=== PATIENT | male | born 1985 | race Asian ===

== ENCOUNTER 2018-02-24 14:34 | Emergency (ER) | payer OTHER ==
[~2018-02-24] VITALS: Ht 172.7 cm; Wt 66.2 kg
[2018-02-24 15:05] LABS: URINE BILIRUBIN NEGATIVE (Negative); URINE BLOOD 1+ (Negative); URINE CLARITY CLEAR; URINE COLOR YELLOW; URINE GLUCOSE-RANDOM* NEGATIVE (Negative); URINE KETONES NEGATIVE (Negative); URINE NITRITE-REFLEX NEGATIVE (Negative); URINE PROTEIN (DIPSTICK) NEGATIVE (Negative); URINE UROBILINOGEN 0.2 E.U./dl (0.2-1.0)
[2018-02-24 15:11] LABS: URINE LEUKOCYTES-REFLEX 2+ (Negative)
[2018-02-24 15:19] LABS: SQUAMOUS None Seen /LPF (0-3); URINE RBC 0-2 Rare /HPF (0-2)
[2018-02-24 15:20] LABS: BACTERIA-REFLEX None Seen /HPF (None Seen); CASTS None Seen /LPF (None Seen); CRYSTALS None Seen /LPF (None Seen)
[2018-02-24 15:48] LABS: ABSOLUTE NEUTROPHILS 4.8 thou/uL (1.4-8.2); BASOPHILS 0.6 % (0.0-2.0); EOSINOPHILS 1.1 % (0.0-3.0); HEMATOCRIT 45.3 % (42.0-52.0); HEMOGLOBIN 15.9 gm/dL (14.0-18.0); LYMPHOCYTES 25.8 % (24.0-44.0); MCV 94.3 fL (80.0-100.0); MONOCYTES 5.3 % (1.0-8.0); PLATELET COUNT 266 thou/uL (150-400); POLYS 67.2 % (36.0-66.0); RDW 12.2 % (10.5-14.5); WBC 7.2 thou/uL (4.0-11.0)
[2018-02-24 15:59] LABS: POTASSIUM 3.7 mmol/L (3.5-5.1)
[2018-02-24 16:05] LABS: ALBUMIN 4.1 g/dL (3.4-5.0); TOTAL BILIRUBIN 0.6 mg/dL (<0.1-1.0); TOTAL PROTEIN 7.8 g/dL (6.4-8.2)
[2018-02-24] MEDS ORDERED: BACTRIM DS TAB1 EACH PO (16:48)
[2018-02-24] MEDS ORDERED: NAPROSYN500 MG PO (16:48)
[2018-02-24 17:25] VITALS: BP 135/88
== END 2018-02-24 17:26 | disposition home or self-care (01) ==
LOC: ER 14:34
PROVIDERS: Emergency Medicine
DX: N39.0 Urinary tract infection, site not specified (principal)

== ENCOUNTER 2018-04-24 15:12 | Emergency (ER) | payer OTHER ==
[~2018-04-24] VITALS: Ht 170.2 cm; Wt 65.8 kg
[~2018-04-24 15:12] MED LIST: BACTRIM DS TAB1 EACH PO; NAPROSYN500 MG PO
[2018-04-24 15:16] VITALS: BP 150/76
[2018-04-24 15:30] LABS: URINE BILIRUBIN NEGATIVE (Negative); URINE BLOOD NEGATIVE (Negative); URINE CLARITY CLEAR; URINE COLOR YELLOW; URINE GLUCOSE-RANDOM* NEGATIVE (Negative); URINE KETONES NEGATIVE (Negative); URINE LEUKOCYTES NEGATIVE (Negative); URINE NITRITE NEGATIVE (Negative); URINE PROTEIN (DIPSTICK) NEGATIVE (Negative); URINE UROBILINOGEN 0.2 E.U./dl (0.2-1.0)
== END 2018-04-24 15:54 | disposition home or self-care (01) ==
LOC: ER 15:12
PROVIDERS: Physician Assistant
DX: Z20.2 Contact with and (suspected) exposure to infections with a predominantly sexual mode of transmission (principal)